=== PATIENT | female | born 1960 | race Caucasian/White ===

== ENCOUNTER → 2023-11-02 07:00 | Outpatient (REF) | payer BC, SELFPAY ==
[2023-11-02 08:28] LABS: % Basophils 0.9 % (0-2); % Eosinophils 1.9 % (0-6); % Immature Granulocytes 0.4 % (0-0.5); % Lymphocytes 24.2 % (20.5-51.1); % Monocytes 7.4 % (1.7-9.3); % Neutrophils 65.2 % (42.2-75.2); Absolute Basophils 0.1 10^3/uL (0-0.2); Absolute Eosinophils 0.1 10^3/uL (0-0.7); Absolute Lymphocytes 1.8 10^3/uL (1.2-3.4); Absolute Monocytes 0.6 10^3/uL (0.1-0.6); Absolute Neutrophils 4.9 10^3/uL (1.4-6.5); Hematocrit 40.5 % (37.0-47.0); Hemoglobin 14.4 g/dL (12.0-16.0); Mean Corp Hgb Conc. 35.6 g/dL (33.0-37.0); Mean Corpuscular Hgb 30.3 pg (27.0-31.0); Mean Corpuscular Volume 85.3 fL (81.0-99.0); Mean Platelet Volume 10.7 fL (7.4-10.4); Nucleated Red Blood Cells % 0 %; Platelet Count 190 10^3/uL (130-400); Red Blood Cell Count 4.75 10^6/uL (4.20-5.40); Red Cell Dist. Width 13.2 % (11.5-14.5); White Blood Cell Count 7.5 10^3/uL (4.8-10.8)
[2023-11-02 08:57] LABS: ALT (SGPT) 114 U/L (0-35); AST (SGOT) 95 U/L (14-36); Albumin 4.6 g/dl (3.5-5.0); Alkaline Phosphatase 98 U/L (38-126); Blood Urea Nitrogen 16 mg/dl (7-17); Carbon Dioxide 26 mmol/L (22-30); Chloride 102 mmol/L (98-107); Glucose 113 mg/dl (70-99); HDL Cholesterol 72 mg/dl; Iron 73 ug/dl (37-170); LDL Cholesterol, Calculated 159 mg/dl; Potassium 3.7 mmol/L (3.5-5.1); Sodium 140 mmol/L (135-145); Total Bilirubin 1.1 mg/dl (0.2-1.3); Total Cholesterol 254 mg/dl (50-199); Total Protein 7.8 g/dl (6.3-8.2); Triglyceride 115 mg/dl (10-149); Very Low Density Lipoprotein 23 mg/dl (0-30); eGFR > 60.00
[2023-11-02 09:12] LABS: Free T4 0.92 ng/dl (0.78-2.19); Vitamin D, 25-OH*** 92.7 ng/mL (30-80)
[2023-11-02 09:25] LABS: TSH 0.72 uIU/ml (0.47-4.68)
[2023-11-02 09:29] LABS: Ferritin 88.9 ng/ml (11.1-264.0)
[2023-11-02 10:26] LABS: Glycohemoglobin (HgbA1c) 5.6 % (4.0-5.6)
== END ==
LOC: REG 07:00
PROVIDERS: ATTENDING PHYSICIAN Physician Assistant
DX: Z00.00 Encounter for general adult medical examination without abnormal findings (principal); Z13.9 Encounter for screening, unspecified; I10 Essential (primary) hypertension; E55.9 Vitamin D deficiency, unspecified; F41.1 Generalized anxiety disorder; F33.0 Major depressive disorder, recurrent, mild; Z85.828 Personal history of other malignant neoplasm of skin; K76.0 Fatty (change of) liver, not elsewhere classified; E78.2 Mixed hyperlipidemia; R73.03 Prediabetes; E66.09 Other obesity due to excess calories; Z68.33 Body mass index [BMI] 33.0-33.9, adult
CPT/HCPCS: 36415; 80053; 80061; 82306; 82728; 83036; 83540; 84439; 84443; 85025

== ENCOUNTER → 2024-01-23 06:53 | Outpatient (REF) | payer BC, SELFPAY | LOC: WDC 06:53 | PROVIDERS: ATTENDING PHYSICIAN Obstetrics & Gynecology; FAMILY PHYSICIAN Family Medicine | DX: Z12.31 Encounter for screening mammogram for malignant neoplasm of breast (principal) | CPT/HCPCS: 77063; 77067 ==

== ENCOUNTER → 2024-04-28 12:25 | Outpatient (REF) | payer BC, SELFPAY | LOC: RAD 12:25 | PROVIDERS: ATTENDING PHYSICIAN Physician Assistant Medical | DX: M54.2 Cervicalgia (principal) | CPT/HCPCS: 72040 ==

== ENCOUNTER → 2024-05-22 07:01 | Outpatient (REF) | payer BC, SELFPAY ==
[2024-05-22 07:46] LABS: % Basophils 0.8 % (0-2); % Eosinophils 1.6 % (0-6); % Immature Granulocytes 0.4 % (0-0.5); % Lymphocytes 21.5 % (20.5-51.1); % Monocytes 8.4 % (1.7-9.3); % Neutrophils 67.3 % (42.2-75.2); Absolute Basophils 0.1 10^3/uL (0-0.2); Absolute Eosinophils 0.1 10^3/uL (0-0.7); Absolute Lymphocytes 1.8 10^3/uL (1.2-3.4); Absolute Monocytes 0.7 10^3/uL (0.1-0.6); Absolute Neutrophils 5.7 10^3/uL (1.4-6.5); Hematocrit 42.2 % (37.0-47.0); Hemoglobin 14.7 g/dL (12.0-16.0); Mean Corp Hgb Conc. 34.8 g/dL (33.0-37.0); Mean Corpuscular Hgb 29.7 pg (27.0-31.0); Mean Corpuscular Volume 85.3 fL (81.0-99.0); Mean Platelet Volume 10.3 fL (7.4-10.4); Nucleated Red Blood Cells % 0 %; Platelet Count 272 10^3/uL (130-400); Red Blood Cell Count 4.95 10^6/uL (4.20-5.40); Red Cell Dist. Width 13.2 % (11.5-14.5); White Blood Cell Count 8.4 10^3/uL (4.8-10.8)
[2024-05-22 08:03] LABS: ALT (SGPT) 82 U/L (0-35); AST (SGOT) 60 U/L (14-36); Albumin 4.8 g/dl (3.5-5.0); Alkaline Phosphatase 79 U/L (38-126); Blood Urea Nitrogen 17 mg/dl (7-17); Calcium 10.2 mg/dl (8.4-10.2); Carbon Dioxide 30 mmol/L (22-30); Chloride 98 mmol/L (98-107); Glucose 125 mg/dl (70-99); HDL Cholesterol 64 mg/dl; LDL Cholesterol, Calculated 164 mg/dl; Potassium 3.8 mmol/L (3.5-5.1); Sodium 139 mmol/L (135-145); Total Bilirubin 1.1 mg/dl (0.2-1.3); Total Cholesterol 254 mg/dl (50-199); Total Protein 8.1 g/dl (6.3-8.2); Triglyceride 131 mg/dl (10-149); Very Low Density Lipoprotein 26 mg/dl (0-30); eGFR > 60.00
[2024-05-22 08:37] LABS: TSH Reflex To Free T4 0.62 uIU/ml (0.47-4.68)
[2024-05-22 10:25] LABS: Glycohemoglobin (HgbA1c) 5.5 % (4.0-5.6)
[2024-05-23 17:34] LABS: Vitamin D 1,25 Dihydroxy 39.5 pg/mL (19.9-79.3)
== END ==
LOC: REG 07:01
PROVIDERS: ATTENDING PHYSICIAN Physician Assistant Medical
DX: Z51.81 Encounter for therapeutic drug level monitoring (principal); I10 Essential (primary) hypertension; F41.1 Generalized anxiety disorder; E78.2 Mixed hyperlipidemia; R73.03 Prediabetes
CPT/HCPCS: 36415; 80053; 80061; 82652; 83036; 84443; 85025

== ENCOUNTER → 2024-08-15 08:49 | Outpatient (REF) | payer BC, SELFPAY | LOC: HWRAD 08:49 | PROVIDERS: ATTENDING PHYSICIAN Physician Assistant Medical; FAMILY PHYSICIAN Family Medicine | DX: R05.1 Acute cough (principal) | CPT/HCPCS: 71046 ==

== ENCOUNTER → 2024-12-04 07:15 | Outpatient (REF) | payer BC, SELFPAY ==
[2024-12-04 08:44] LABS: Hematocrit 43.1 % (37.0-47.0); Hemoglobin 14.7 g/dL (12.0-16.0); Mean Corp Hgb Conc. 34.1 g/dL (33.0-37.0); Mean Corpuscular Volume 85.2 fL (81.0-99.0); Nucleated Red Blood Cells % 0 %; Platelet Count 251 10^3/uL (130-400); Red Cell Dist. Width 13.0 % (11.5-14.5)
[2024-12-04 09:27] LABS: ALT (SGPT) 57 U/L (0-35); AST (SGOT) 48 U/L (14-36); Albumin 4.9 g/dl (3.5-5.0); Alkaline Phosphatase 69 U/L (38-126); Blood Urea Nitrogen 17 mg/dl (7-17); Calcium 9.6 mg/dl (8.4-10.2); Carbon Dioxide 29 mmol/L (22-30); Chloride 101 mmol/L (98-107); Glucose 111 mg/dl (70-99); HDL Cholesterol 58 mg/dl; LDL Cholesterol, Calculated 166 mg/dl; Potassium 3.7 mmol/L (3.5-5.1); Sodium 139 mmol/L (135-145); Total Protein 8.4 g/dl (6.3-8.2); Very Low Density Lipoprotein 45 mg/dl (0-30); eGFR > 60.00
[2024-12-04 10:56] LABS: Vitamin D, 25-OH*** 48.2 ng/mL (30-80)
[2024-12-04 16:06] LABS: Glycohemoglobin (HgbA1c) 5.6 % (4.0-5.6)
== END ==
LOC: REG 07:15
PROVIDERS: ATTENDING PHYSICIAN Physician Assistant Medical
DX: E55.9 Vitamin D deficiency, unspecified (principal); I10 Essential (primary) hypertension; K76.0 Fatty (change of) liver, not elsewhere classified; E78.2 Mixed hyperlipidemia; R73.03 Prediabetes
CPT/HCPCS: 36415; 80053; 80061; 82306; 83036; 84443; 85025

== ENCOUNTER → 2025-01-27 06:48 | Outpatient (REF) | payer BC, SELFPAY | LOC: WDC 06:48 | PROVIDERS: ATTENDING PHYSICIAN Physician Assistant Medical | DX: Z12.31 Encounter for screening mammogram for malignant neoplasm of breast (principal) | CPT/HCPCS: 77063; 77067 ==